=== PATIENT | male | born 1975 | race Caucasian/White ===

== ENCOUNTER 2017-03-08 04:54 | Emergency (ER) | payer SELFPAY ==
[~2017-03-08] VITALS: Ht 185.4 cm; Wt 81.6 kg
--- NOTE | 2017-03-08 05:05 | PHYS DOC ---
Adult General Chief Complaint Chief Complaint: MULTIPLE COMPLAINTS HPI HPI Patient is a 41 year old male who presents with itching & hand pain. States he spent most of the day yesterday moving boxes in a [place] basement, then stayed up all night. Noticed a bump on his left index finger. Also feels itchy all over. Denies traumatic injury. Denies rash, face/tongue/lip swelling , shortness of breath, nausea, vomiting, diarrhea. Took claritin prior to arrival & feels better. Review of Systems Review of Systems Constitutional: Denies fever or chills Eyes: Denies drainage HENT: Denies nasal congestion or sore throat Respiratory: Denies cough or shortness of breath Cardiovascular: Denies chest pain GI: Denies abdominal pain, nausea, vomiting, or diarrhea Musculoskeletal: Reports finger pain Integument: Denies rash, reports itching. Neurologic: Denies headache Allergies Allergies Allergies Coded Allergies Type Severity Reaction Last Updated Verified No Known Drug Allergies 03/08/17 No Physical Exam Physical Exam Constitutional: Well developed, well nourished, no acute distress, non-toxic appearance. HENT: Normocephalic, atraumatic, bilateral external ears normal, oropharynx moist, nose normal. no face/tongue/lip swelling. Eyes: conjunctiva normal, no discharge. Neck: supple, no stridor. Cardiovascular: RRR, no murmurs, no edema. Lungs & Thorax: LCTAB, no wheezing, no respiratory distress. Abdomen: soft, nontender, nondistended. Skin: Warm, dry, no erythema, no rash., no urticaria Extremities: tiny tender nodules over palmar aspect of MCP of left index finger , no bony tenderness, normal ROM, no erythema/warmth/swelling, cap refill < 2 sec, sensation intact to fingertip Neurologic: Alert and oriented X 3 Current Patient Data Vital Signs Vital Signs Date Time Temp Pulse Resp B/P (MAP) Pulse Ox O2 Delivery O2 Flow Rate FiO2 03/08/17 05:08 97.8 92 20 129/65 (86) 97 Room Air 97.8 EKG EKG [] Radiology/Procedures Radiology/Procedures [] Course & Med Decision Making Course & Med Decision Making Pertinent Labs and Imaging studies reviewed. (See chart for details) The patient presents with hand pain & itching. LIkely allergic symptoms from dust exposure. Continue claritin or benadryl & avoid repeated exposure, would also recommend resting since he stayed up all night. Possible overuse/strain injury. Apply ice, take ibuprofen for pain/swelling. Follow up as needed with primary care in 1 week. He requested orthopedic referral, gave contact info for Dr. Serna. Come back for face/tongue/lip swelling, severe shortness of breath, any otherwise worsening condition. Discharged home in stable condition. [] Dragon Disclaimer Dragon Disclaimer This electronic medical record was generated, in whole or in part, using a voice recognition dictation system. Departure Departure Impression: Primary Impression: Finger pain Disposition: HOME, SELF-CARE Condition: STABLE Referrals: NO PCP (PCP) LUPE SERNA MD, WILLIAM R MD Patient Instructions: Allergies, Generic SIDNEY WEBB MD Mar 08, 2017 05:05
[2017-03-08 05:08] VITALS: BP 129/65
== END 2017-03-08 05:35 | disposition home or self-care (01) ==
LOC: ER 04:54
DX: M79.645 Pain in left finger(s) (principal); L29.9 Pruritus, unspecified
CPT/HCPCS: 99281